=== PATIENT | female | born 1980 | race Caucasian/White ===

== ENCOUNTER 2018-02-11 09:50 | Emergency (ER) | payer OTHER ==
[2018-02-11] MEDS: LIDOCAINE WITH 8.4% SOD BICARB 3 ML DISP.SYRIN. INJ (10:21)
== END 2018-02-11 11:01 | disposition home or self-care (01) ==
LOC: ER 09:50
DX: L02.415 Cutaneous abscess of right lower limb (principal); J44.9 Chronic obstructive pulmonary disease, unspecified; G89.29 Other chronic pain; E11.9 Type 2 diabetes mellitus without complications; F17.200 Nicotine dependence, unspecified, uncomplicated; Z88.6 Allergy status to analgesic agent
CPT/HCPCS: 10060; 99283-25

== ENCOUNTER 2019-02-20 15:10 | Emergency (ER) | payer OTHER, SELFPAY ==
[~2019-02-20] VITALS: Ht 160 cm; Wt 63.5 kg
[~2019-02-20 15:10] MED LIST: AMOX875T PO; ASPI-630 PO; BUPR100T6 PO; CEPH-263 PO; CEPH500C PO; CIPR500T94 PO; CITA20TA9 PO; CITA40TA12 PO; CLON1TAB PO; CYCL10TA2 PO; ETHY1TAB2 PO; HYDR-2761 PO; IBUP-1060 PO; METF500T16 PO; NICO1PAT25 TP; OXYC30TA64 PO; OXYC5CAP PO; PRED20TA PO; PROM25SU32 PO; SULF1TAB24 PO; ZOLP10TA PO
[2019-02-20 16:20] LABS: BASO # 0.1 x10^3/uL (0.0-0.2); BASO % 1 % (0-3); EOS % 1 % (0-3); HEMATOCRIT 44.1 % (36.0-47.0); HEMOGLOBIN 15.2 g/dL (12.0-15.5); LYMPH % 33 % (24-48); MEAN CORPUSCULAR HEMOGLOBIN 33 pg (25-35); MEAN CORPUSCULAR HGB CONC 35 g/dL (31-37); MEAN CORPUSCULAR VOLUME 94 fL (79-100); MONO # 0.7 x10^3/uL (0.0-1.1); MONO % 8 % (0-9); NEUT # 5.2 x10^3uL (1.8-7.7); NEUT % 58 % (31-73); PLATELET COUNT 206 x10^3/uL (140-400); RED BLOOD COUNT 4.68 x10^6/uL (3.50-5.40); RED CELL DISTRIBUTION WIDTH 13.3 % (11.5-14.5); WHITE BLOOD COUNT 8.9 x10^3/uL (4.0-11.0)
[2019-02-20] MEDS ORDERED: diphenhydrAMINE 50 MG/ML VIAL IVP ONE (16:30)
[2019-02-20] MEDS ORDERED: METOCLOPRAMIDE HCL 10 MG/2 ML VIAL. IV ONE ×2 (16:30→18:30)
[2019-02-20 16:34] LABS: ALBUMIN 4.3 g/dL (3.4-5.0); ALBUMIN/GLOBULIN RATIO 1.2 (1.0-1.7); CALCIUM 10.3 mg/dL (8.5-10.1); CREATININE 0.8 mg/dL (0.6-1.0); GFR 79.9; TOTAL BILIRUBIN 0.7 mg/dL (0.2-1.0); TOTAL PROTEIN 7.9 g/dL (6.4-8.2)
[2019-02-20 16:37] LABS: POTASSIUM 2.9 mmol/L (3.5-5.1)
[2019-02-20] MEDS ORDERED: POTASSIUM CHLORIDE 20 MEQ/15 ML ORAL LIQUID. PO ONE (17:00)
[2019-02-20] MEDS ORDERED: IV NORMAL SALINE 1000ML BAG 1,000 ML IV ONE (17:00)
[2019-02-20] MEDS ORDERED: IOHEXOL 300 MG/ML 100ML VIAL. IV ONE (17:15)
[2019-02-20] MEDS ORDERED: CONTRAST GIVEN. MC PRN (17:15)
--- NOTE | 2019-02-20 17:42 | RAD ---
CT Abdomen and Pelvis with contrast CT Abdomen and Pelvis with contrast 02/20/2019 Clinical Indication: Abdominal pain, constipation, nausea and vomiting Comparison: None Technique: Multiple CT images of the abdomen and pelvis were obtained with contrast following intravenous administration of Isovue 370 *One or more of the following individualized dose reduction techniques were utilized for this examination: 1. Automated exposure control. 2. Adjustment of the mA and/or kV according to patient size. 3. Use of iterative reconstruction technique. Findings: Heart size is normal. The visualized lung bases are clear. Liver is normal in size. Interval visualization of hypodensity in the liver adjacent to the fissure for the ligamentum teres measuring 1.4 cm series 2/image 20. Gallbladder, spleen, adrenal glands and pancreas are unremarkable. There is a stable 5 mm nonobstructive calculus in the inferior pole of the right kidney. Abdominal aorta is normal in caliber. Nature portal veins are patent. No retroperitoneal or mesenteric lymphadenopathy. The small and large bowel loops are normal in caliber without obstruction. No abdominal free fluid. No pneumoperitoneum. The appendix is normal in appearance. Mildly distended unopacified urinary bladder, uterus and adnexa are unremarkable. Trace dependent pelvic free fluid, likely physiologic. No iliac or inguinal lymphadenopathy. Moderate disc degeneration at L5-S1. There are no destructive osseous lesions. IMPRESSION: 1. No CT evidence of acute abdominal or pelvic process. 2. Stable nonobstructive left renal calculus. 3. Interval visualization of a right hepatic hypodensity which is a common location for focal steatosis, though indeterminate. Nonemergent MRI abdomen with contrast is recommended for further evaluation. Electronically signed by: Hi Jane MD (02/20/2019 5:40 PM) [facility] [place]
[2019-02-20] MEDS ORDERED: PROM25TA10 PO (18:37)
[2019-02-20] MEDS ORDERED: POTA10TA12 PO (18:37)
--- NOTE | 2019-02-20 18:37 | PHYS DOC ---
Past Medical History Past Medical History: Anxiety, COPD, Depression, Diabetes-Type II, Kidney Stone, Other Additional Past Medical Histor: Chronic back pain,DDD,MULT ABSCESSES Past Surgical History: Tonsillectomy, Tubal ligation, Other Additional Past Surgical Histo: ACL repair right knee x2, Top teeth removed Additional Information: 1 PK/DAY Alcohol Use: Occasionally Drug Use: None Social History Narrative: PREVIOUS METH ABUSE Adult General Chief Complaint Chief Complaint: NAUSEA/VOMITING/DIARRHA HPI HPI Patient is a 38 year old F who is here for N/V and constipation. She states that she was just [facility] last night and during her incarceration she did go through opiate withdrawal. They treated her symptoms while she was there but since release she can't stop vomiting and reports no bowel movement for 4 d ays. Pt did go to another ER today but states they gave her PO Zofran and sent her home and she has tried taking that (24 mg so far) and is still vomiting. She has abdominal cramps throughout but no focal pain. Review of Systems Review of Systems Constitutional: Denies fever or chills. Reports generalized weakness. Respiratory: Denies cough or shortness of breath Cardiovascular: Denies chest pain GI: Reports abdominal pain, nausea, vomiting and diarrhea. : Denies dysuria or hematuria Musculoskeletal: Denies back pain or joint pain Integument: Denies rash or skin lesions Neurologic: Denies headache, focal weakness or sensory changes Endocrine: Denies polyuria or polydipsia All other systems were reviewed and found to be within normal limits, except as documented in this note. Current Medications Current Medications Current Medications Medications (Trade) Dose Ordered Sig/Rainer Start Time Stop Time Status Last Admin Dose Admin Diphenhydramine HCl (Benadryl) 12.5 mg 1X ONCE 02/20/19 16:30 02/20/19 16:31 DC 02/20/19 17:04 12.5 MG Info (CONTRAST GIVEN -- Rx MONITORING) 1 each PRN DAILY PRN 02/20/19 17:15 02/20/19 19:06 DC Iohexol (Omnipaque 300 Mg/ml) 75 ml 1X ONCE 02/20/19 17:15 02/20/19 17:16 DC 02/20/19 17:23 75 ML Metoclopramide HCl (Reglan Vial) 10 mg 1X ONCE 02/20/19 18:30 02/20/19 18:31 DC 02/20/19 18:16 10 MG Potassium Chloride (KCl Oral Soln) 40 meq 1X ONCE 02/20/19 17:00 02/20/19 17:01 DC 02/20/19 18:30 40 MEQ Sodium Chloride 1,000 ml @ 1,000 mls/hr 1X ONCE 02/20/19 17:00 02/20/19 17:59 DC 02/20/19 17:05 1,000 MLS/HR Allergies Allergies Allergies Coded Allergies Type Severity Reaction Last Updated Verified tramadol Adverse Reaction Intermediate Anxiety 10/09/15 Yes Physical Exam Physical Exam Constitutional: Well developed,no acute distress, non-toxic appearance. Dehydrated in appearance, uncomfortable. HENT: Normocephalic, atraumatic Neck: Normal range of motion, no tenderness, supple, no stridor. Cardiovascular:Heart rate regular rhythm, no murmur Lungs & Thorax: Bilateral breath sounds clear to auscultation Abdomen: Bowel sounds normal, soft, tenderness diffuse through all 4 quadrants. Skin: Warm, dry, no erythema, no rash. Back: No tenderness, no CVA tenderness. Extremities: No tenderness, no cyanosis, no clubbing, ROM intact, no edema. Neurologic: Alert and oriented X 3, normal motor function, normal sensory function, no focal deficits noted. Psychologic: Affect normal, judgement normal, mood normal. Current Patient Data Vital Signs Vital Signs Date Time Temp Pulse Resp B/P (MAP) Pulse Ox O2 Delivery O2 Flow Rate FiO2 02/20/19 18:50 70 20 152/90 (110) 98 Room Air 02/20/19 15:52 98.5 98.5 Lab Values Laboratory Tests Test 02/20/19 16:09 White Blood Count 8.9 x10^3/uL (4.0-11.0) Red Blood Count 4.68 x10^6/uL (3.50-5.40) Hemoglobin 15.2 g/dL (12.0-15.5) Hematocrit 44.1 % (36.0-47.0) Mean Corpuscular Volume 94 fL (79-100) Mean Corpuscular Hemoglobin 33 pg (25-35) Mean Corpuscular Hemoglobin Concent 35 g/dL (31-37) Red Cell Distribution Width 13.3 % (11.5-14.5) Platelet Count 206 x10^3/uL (140-400) Neutrophils (%) (Auto) 58 % (31-73) Lymphocytes (%) (Auto) 33 % (24-48) Monocytes (%) (Auto) 8 % (0-9) Eosinophils (%) (Auto) 1 % (0-3) Basophils (%) (Auto) 1 % (0-3) Neutrophils # (Auto) 5.2 x10^3uL (1.8-7.7) Lymphocytes # (Auto) 3.0 x10^3/uL (1.0-4.8) Monocytes # (Auto) 0.7 x10^3/uL (0.0-1.1) Eosinophils # (Auto) 0.0 x10^3/uL (0.0-0.7) Basophils # (Auto) 0.1 x10^3/uL (0.0-0.2) Sodium Level 144 mmol/L (136-145) Potassium Level 2.9 mmol/L (3.5-5.1) *L Chloride Level 102 mmol/L (98-107) Carbon Dioxide Level 23 mmol/L (21-32) Anion Gap 19 (6-14) H Blood Urea Nitrogen 13 mg/dL (7-20) Creatinine 0.8 mg/dL (0.6-1.0) Estimated GFR (Cockcroft-Gault) 79.9 BUN/Creatinine Ratio 16 (6-20) Glucose Level 113 mg/dL (70-99) H Calcium Level 10.3 mg/dL (8.5-10.1) H Total Bilirubin 0.7 mg/dL (0.2-1.0) Aspartate Amino Transferase (AST) 13 U/L (15-37) L Alanine Aminotransferase (ALT) 21 U/L (14-59) Alkaline Phosphatase 64 U/L (46-116) Total Protein 7.9 g/dL (6.4-8.2) Albumin 4.3 g/dL (3.4-5.0) Albumin/Globulin Ratio 1.2 (1.0-1.7) Lipase 49 U/L (73-393) L Laboratory Tests 02/20/19 16:09 Laboratory Tests 02/20/19 16:09 EKG EKG [] Radiology/Procedures Radiology/Procedures no signs of obstructive process Course & Med Decision Making Course & Med Decision Making Pertinent Labs and Imaging studies reviewed. (See chart for details) Pt treated for hypokalemia here in ER and encouraged potassium rich foods and fluids and electrolyte drinks. Pt is tolerated PO at time of discharge and will be discharged with Phenergan to see if that helps control symptoms better. Discussed that this could still be part of opiate withdrawal or could be virus. Pt to return if symptoms worsen at anytime. Dragon Disclaimer Dragon Disclaimer This electronic medical record was generated, in whole or in part, using a voice recognition dictation system. Departure Departure Impression: Primary Impression: Nausea & vomiting Additional Impression: Hypokalemia Disposition: HOME, SELF-CARE Condition: IMPROVED Referrals: KURT GOODE MD (PCP) Patient Instructions: Hypokalemia, Nausea and Vomiting, [id number] Additional Instructions: Follow a very bland diet. Examples are Bananas, Rice, Applesauce or [place]. Stay away from spice and dairy until feeling better. Push fluids, including electrolytes and return if symptoms worsen at anytime. Scripts Potassium Chloride (POTASSIUM CHLORIDE) 10 Meq Tablet.er 10 MEQ PO DAILY for 3 Days, #3 TAB Prov: MIMI AVILES 02/20/19 Promethazine Hcl (PROMETHAZINE HCL) 25 Mg Tablet 1 TAB PO PRN Q6HRS, #20 TAB Prov: MIMI AVILES 02/20/19 Problem Qualifiers MIMI AVILES February 20, 2019 18:37
[2019-02-20 18:50] VITALS: BP 152/90
== END 2019-02-20 18:59 | disposition home or self-care (01) ==
LOC: ER 15:10
DX: R11.2 Nausea with vomiting, unspecified (principal); E87.6 Hypokalemia; K59.00 Constipation, unspecified; F41.9 Anxiety disorder, unspecified; J44.9 Chronic obstructive pulmonary disease, unspecified; F32.9 Major depressive disorder, single episode, unspecified; E11.9 Type 2 diabetes mellitus without complications; G89.29 Other chronic pain; F17.200 Nicotine dependence, unspecified, uncomplicated; Z88.5 Allergy status to narcotic agent; Z90.89 Acquired absence of other organs; Z98.51 Tubal ligation status
CPT/HCPCS: 36415; 74177; 80053; 83690; 85025; 96361; 96374; 96375; 96376; 99285; J1200; J2765; J7030; Q9967

== ENCOUNTER 2019-09-06 19:46 | Emergency (ER) | payer SELFPAY ==
[~2019-09-06] VITALS: Ht 160 cm; Wt 65.8 kg
[~2019-09-06 19:46] MED LIST changes: +POTASSIUM CHLO10 ME1 PO; +PROM25TA10 PO
[2019-09-06 20:18] LABS: BILIRUBIN,URINE NEGATIVE (NEG); CLARITY,URINE CLEAR; COLOR,URINE YELLOW; NITRITE,URINE NEGATIVE (NEG); PROTEIN,URINE NEGATIVE (NEG-TRACE); UROBILINOGEN,URINE 0.2 mg/dL (0.2 mg/dL)
[2019-09-06 20:28] LABS: RBC,URINE >40 /HPF (0-2)
[2019-09-06 20:29] LABS: BACTERIA,URINE FEW /HPF (0-FEW); SQUAMOUS EPITHELIAL CELL,UR OCC /LPF
[2019-09-06 20:42] LABS: BASO # 0.1 x10^3/uL (0.0-0.2); BASO % 1 % (0-3); EOS # 0.3 x10^3/uL (0.0-0.7); EOS % 3 % (0-3); HEMATOCRIT 34.7 % (36.0-47.0); HEMOGLOBIN 11.8 g/dL (12.0-15.5); LYMPH # 3.1 x10^3/uL (1.0-4.8); LYMPH % 40 % (24-48); MEAN CORPUSCULAR HEMOGLOBIN 33 pg (25-35); MEAN CORPUSCULAR HGB CONC 34 g/dL (31-37); MEAN CORPUSCULAR VOLUME 96 fL (79-100); MONO # 0.6 x10^3/uL (0.0-1.1); MONO % 7 % (0-9); NEUT # 3.8 x10^3/uL (1.8-7.7); NEUT % 49 % (31-73); PLATELET COUNT 226 x10^3/uL (140-400); RED BLOOD COUNT 3.61 x10^6/uL (3.50-5.40); RED CELL DISTRIBUTION WIDTH 13.8 % (11.5-14.5); WHITE BLOOD COUNT 7.7 x10^3/uL (4.0-11.0)
[2019-09-06 20:52] LABS: PROTHROMBIN TIME PATIENT 12.3 SEC (11.7-14.0)
[2019-09-06 20:55] LABS: CALCIUM 8.9 mg/dL (8.5-10.1); CREATININE 0.5 mg/dL (0.6-1.0); GFR 136.6; POTASSIUM 3.4 mmol/L (3.5-5.1)
[2019-09-06 21:00] LABS: ALBUMIN 3.7 g/dL (3.4-5.0); ALBUMIN/GLOBULIN RATIO 1.1 (1.0-1.7); TOTAL BILIRUBIN 0.3 mg/dL (0.2-1.0); TOTAL PROTEIN 7.1 g/dL (6.4-8.2)
[2019-09-06 21:14] VITALS: BP 108/74
--- NOTE | 2019-09-06 21:39 | PHYS DOC ---
Past Medical History Past Medical History: Anxiety, COPD, Depression, Diabetes-Type II, Kidney Stone, Other Additional Past Medical Histor: Chronic back pain,DDD,MULT ABSCESSES (LYNDA CARLSON APRN) Past Surgical History: Tonsillectomy, Tubal ligation, Other Additional Past Surgical Histo: ACL repair right knee x2, Top teeth removed (LYNDA CARLSON APRN) Alcohol Use: Occasionally Drug Use: None (LYNDA CARLSON APRN) Attending Signature I have participated in the care of this patient and I have reviewed and agree with all pertinent clinical information above including history, exam, and recommendations. (TONNY BANKS MD) Adult General Chief Complaint Chief Complaint: VAGINAL BLEEDING HPI HPI Patient is a 39 year old Female who presents with has been on her menses for the last 3 weeks. She states she's been having low abdominal cramping. Patient states she's gone through 6-8 pads a day. Patient states times she has large clots. Patient states she did not have a period last month. She states she has bilateral low back pain. 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 Patient states she has not her insurance and does not know where to go. Patient currently rates her pain a 5 out of 10 and states she's been taking ibuprofen or Advil for her pain. Patient's refusing any pain medicines at this time. Patient denies nausea, vomiting, chest pain, shortness of air, dysuria, fever, recent illness, dysuria, dizziness, headache, visual changes, numbness or tingling. (LYNDA CARLSON APRN) Review of Systems Review of Systems GI: Lower and left upper side abdominal pain, Denies nausea, vomiting, bloody stools or diarrhea [] : Vaginal bleeding. Denies dysuria or hematuria [] Musculoskeletal: Bilateral lower back pain or joint pain [] All other systems were reviewed and found to be within normal limits, except as documented in this note. (LYNDA CARLSON APRN) Current Medications Current Medications Current Medications Medications (Trade) Dose Ordered Sig/Rainer Start Time Stop Time Status Last Admin Dose Admin Ibuprofen (Motrin) 600 mg 1X ONCE 09/06/19 23:30 09/06/19 23:31 DC 09/06/19 23:21 600 MG (TONNY BANKS MD) Allergies Allergies Allergies Coded Allergies Type Severity Reaction Last Updated Verified tramadol Adverse Reaction Intermediate Anxiety 10/09/15 Yes (TONNY BANKS MD) Physical Exam Physical Exam Constitutional: Well developed, well nourished, no acute distress, non-toxic appearance. [] HENT: Normocephalic, atraumatic, bilateral external ears normal, oropharynx moist, no oral exudates, nose normal. [] Eyes: PERRLA, EOMI, conjunctiva normal, no discharge. [] Neck: Normal range of motion, no tenderness, supple, no stridor. [] Cardiovascular:Heart rate regular rhythm, no murmur [] Lungs & Thorax: Bilateral breath sounds clear to auscultation [] Abdomen: Bowel sounds normal, soft, left upper and low tenderness, no masses, no pulsatile masses. [] Skin: Warm, dry, no erythema, no rash. [] Back: No tenderness, no CVA tenderness. [] Extremities: No tenderness, no cyanosis, no clubbing, ROM intact, no edema. [] Neurologic: Alert and oriented X 3, normal motor function, normal sensory funct ion, no focal deficits noted. [] Psychologic: Affect normal, judgement normal, mood normal. [] (LYNDA CARLSON APRN) Current Patient Data Vital Signs Vital Signs Date Time Temp Pulse Resp B/P (MAP) Pulse Ox O2 Delivery O2 Flow Rate FiO2 09/06/19 21:14 89 14 108/74 (85) 99 Room Air 09/06/19 20:18 98.5 98.5 (TONNY BANKS MD) Lab Values Laboratory Tests Test 09/06/19 19:58 09/06/19 20:35 Urine Color Yellow Urine Clarity Clear Urine pH 6.0 Urine Specific [place] 1.015 Urine Protein Negative mg/dL (NEG-TRACE) Urine Glucose (UA) Negative mg/dL (NEG) Urine Ketones (Stick) Negative mg/dL (NEG) Urine Blood Large (NEG) Urine Nitrite Negative (NEG) Urine Bilirubin Negative (NEG) Urine Urobilinogen Dipstick 0.2 mg/dL (0.2 mg/dL) Urine Leukocyte Esterase Negative (NEG) Urine RBC >40 /HPF (0-2) Urine WBC 1-4 /HPF (0-4) Urine Squamous Epithelial Cells Occ /LPF Urine Bacteria Few /HPF (0-FEW) Urine Mucus Slight /LPF White Blood Count 7.7 x10^3/uL (4.0-11.0) Red Blood Count 3.61 x10^6/uL (3.50-5.40) Hemoglobin 11.8 g/dL (12.0-15.5) L Hematocrit 34.7 % (36.0-47.0) L Mean Corpuscular Volume 96 fL (79-100) Mean Corpuscular Hemoglobin 33 pg (25-35) Mean Corpuscular Hemoglobin Concent 34 g/dL (31-37) Red Cell Distribution Width 13.8 % (11.5-14.5) Platelet Count 226 x10^3/uL (140-400) Neutrophils (%) (Auto) 49 % (31-73) Lymphocytes (%) (Auto) 40 % (24-48) Monocytes (%) (Auto) 7 % (0-9) Eosinophils (%) (Auto) 3 % (0-3) Basophils (%) (Auto) 1 % (0-3) Neutrophils # (Auto) 3.8 x10^3/uL (1.8-7.7) Lymphocytes # (Auto) 3.1 x10^3/uL (1.0-4.8) Monocytes # (Auto) 0.6 x10^3/uL (0.0-1.1) Eosinophils # (Auto) 0.3 x10^3/uL (0.0-0.7) Basophils # (Auto) 0.1 x10^3/uL (0.0-0.2) Prothrombin Time 12.3 SEC (11.7-14.0) Prothrombin Time INR 0.9 (0.8-1.1) Maternal Serum HCG Beta Subunit < 1 mIU/mL (0-5) Sodium Level 140 mmol/L (136-145) Potassium Level 3.4 mmol/L (3.5-5.1) L Chloride Level 104 mmol/L (98-107) Carbon Dioxide Level 29 mmol/L (21-32) Anion Gap 7 (6-14) Blood Urea Nitrogen 5 mg/dL (7-20) L Creatinine 0.5 mg/dL (0.6-1.0) L Estimated GFR (Cockcroft-Gault) 136.6 BUN/Creatinine Ratio 10 (6-20) Glucose Level 97 mg/dL (70-99) Calcium Level 8.9 mg/dL (8.5-10.1) Total Bilirubin 0.3 mg/dL (0.2-1.0) Aspartate Amino Transferase (AST) 15 U/L (15-37) Alanine Aminotransferase (ALT) 18 U/L (14-59) Alkaline Phosphatase 54 U/L (46-116) Total Protein 7.1 g/dL (6.4-8.2) Albumin 3.7 g/dL (3.4-5.0) Albumin/Globulin Ratio 1.1 (1.0-1.7) Lipase 46 U/L (73-393) L Laboratory Tests 09/06/19 20:35 Laboratory Tests 09/06/19 20:35 (TONNY BANKS MD) EKG EKG [] (LYNDA CARLSON APRN) Radiology/Procedures Radiology/Procedures [] (LYNDA CARLSON APRN) Impressions: [facility] [address] [place] [address] IMAGING REPORT Signed PATIENT: MARIAN HOSKINS ACCOUNT: [id number] : 1980 LOCATION: ER AGE: 39 SEX: F EXAM STATUS: REG ER ORD. PHYSICIAN: LYNDA CARLSON APRN REASON: vaginal bleeding x 3 weeks PROCEDURE: PELVIS W/TV PELVIS W/TV History: Vaginal bleeding 3 weeks. Comparison: None. Technique: Grayscale and color Doppler imaging of the pelvis was performed using transabdominal and transvaginal technique. Findings: The uterus measures 9.4 x 5.8 x 4.8 cm in length. Thickened heterogeneous endometrium 0.7 cm. Right ovary measures 3.6 x 2.5 x 1.7 cm. Dominant right ovarian follicle measures 2.4 cm. Left ovary measures 5.1 x 3.7 x 2.6 cm. Left ovarian cystic lesion with thickened wall and septation measures 2.9 x 2.7 x 2.4 cm. IMPRESSION: 1. Thickened heterogeneous endometrium, may represent endometrial hyperplasia. Recommend further clinical evaluation and endometrial biopsy if indicated to rule out endometrial carcinoma. 2. Left ovarian cystic lesion thickened septation. Recommend attention on follow-up. Electronically signed by: Nick Taveras DO (09/06/2019 9:35 PM) [facility] DICTATED and SIGNED BY: NICK TAVERAS DO DATE: 09/06/19 2138 [facility] [address] [place] [address] IMAGING REPORT Signed PATIENT: MARIAN HOSKINS ACCOUNT: [id number] : 1980 LOCATION: ER AGE: 39 SEX: F EXAM STATUS: REG ER ORD. PHYSICIAN: LYNDA CARLSON APRN REASON: HX KID STONE, LEFT SIDE PAIN AND BACK PAIN PROCEDURE: CT ABDOMEN PELVIS WO CONTRAST CT ABDOMEN PELVIS WO CONTRAST History: History of kidney stone. Left-sided pain. Technique: Noncontrast examination of the abdomen and pelvis. Coronal and sagittal reconstructions were performed. Exposure: One or more of the following individualized dose reduction techniques were utilized for this examination: 1. Automated exposure control 2. Adjustment of the mA and/or kV according to patient size 3. Use of iterative reconstruction technique. Comparison: February 20, 2019 Findings: Lower chest: No consolidation or pleural effusion. Abdomen and pelvis: The liver, spleen, adrenal glands, pancreas and gallbladder are unremarkable. Nonobstructing left renal calculi. No hydronephrosis. No ureteral calculi. Normal appendix. No evidence of bowel obstruction. Diffuse apparent colonic wall thickening. No pathologic lymphadenopathy. No ascites. Pelvic contents are unremarkable. Bones: No pathologic osseous lesions. Impression: 1. No obstructing urolithiasis. 2. Diffuse apparent colonic wall thickening, likely due to nondistention. Correlate for colitis. 3. Nonobstructing left renal calculi. Electronically signed by: Nick Taveras DO (09/06/2019 11:00 PM) [facility] DICTATED and SIGNED BY: NICK TAVERAS DO DATE: 09/06/19 2300 (LYNDA CARLSON APRN) Course & Med Decision Making Course & Med Decision Making Alert and oriented. Speaks in full clear sentences. Ambulatory with steady gait. Skin pink warm and dry. Abdomen is soft and non-tender. Lungs are clear to auscultation all lobes. Vital signs are within normal limits. No extremity swelling. Blood work is unremarkable. Patient states at times she gets left side sharp pains that at times will make her double over and she does have a history of kidney stones. PERRLA. No CVA tenderness. US shows IMPRESSION: 1. Thickened heterogeneous endometrium, may represent endometrial hyperplasia. Recommend further clinical evaluation and endometrial biopsy if indicated to rule out endometrial carcinoma. 2. Left ovarian cystic lesion thickened septation. Recommend attention on follow-up. CT ABD PELV Impression: 1. No obstructing urolithiasis. 2. Diffuse apparent colonic wall thickening, likely due to nondistention. Correlate for colitis. 3. Nonobstructing left renal calculi. Patient follow-up with gynecology. I will refer her to gynecology for follow-up as soon as possible. [] (LYNDA CARLSON APRN) Dragon Disclaimer Dragon Disclaimer This electronic medical record was generated, in whole or in part, using a voice recognition dictation system. (LYNDA CARLSON APRN) Departure Departure Impression: Primary Impression: Dysmenorrhea Disposition: HOME, SELF-CARE Condition: STABLE Referrals: NO PCP (PCP) NAYLA GRANGER Jr, MD Patient Instructions: Dysmenorrhea, [id number] Additional Instructions: Follow-up with gynecology as soon as possible. Call them in the morning. Scripts Hydrocodone/Apap 5-325 (NORCO 5-325 TABLET) 1 Each Tablet 1 TAB PO PRN Q6HRS PRN for PAIN, #8 TAB 0 Refills Prov: LYNDA CARLSON APRN 09/06/19 LYNDA CARLSON APRN Sep 06, 2019 21:39 TONNY BANKS MD Sep 07, 2019 04:58
--- NOTE | 2019-09-06 23:03 | RAD ---
CT ABDOMEN PELVIS WO CONTRAST History: History of kidney stone. Left-sided pain. Technique: Noncontrast examination of the abdomen and pelvis. Coronal and sagittal reconstructions were performed. Exposure: One or more of the following individualized dose reduction techniques were utilized for this examination: 1. Automated exposure control 2. Adjustment of the mA and/or kV according to patient size 3. Use of iterative reconstruction technique. Comparison: February 20, 2019 Findings: Lower chest: No consolidation or pleural effusion. Abdomen and pelvis: The liver, spleen, adrenal glands, pancreas and gallbladder are unremarkable. Nonobstructing left renal calculi. No hydronephrosis. No ureteral calculi. Normal appendix. No evidence of bowel obstruction. Diffuse apparent colonic wall thickening. No pathologic lymphadenopathy. No ascites. Pelvic contents are unremarkable. Bones: No pathologic osseous lesions. Impression: 1. No obstructing urolithiasis. 2. Diffuse apparent colonic wall thickening, likely due to nondistention. Correlate for colitis. 3. Nonobstructing left renal calculi. Electronically signed by: Nick Taveras DO (09/06/2019 11:00 PM) [facility]
[2019-09-06] MEDS ORDERED: HYDR-3164 PO (23:30)
[2019-09-06] MEDS ORDERED: IBUPROFEN 200 MG TABLET. PO ONE (23:30)
== END 2019-09-06 23:34 | disposition home or self-care (01) ==
LOC: ER 19:46
DX: N94.6 Dysmenorrhea, unspecified (principal); M54.5 Low back pain; R10.12 Left upper quadrant pain; R10.32 Left lower quadrant pain; J44.9 Chronic obstructive pulmonary disease, unspecified; E11.9 Type 2 diabetes mellitus without complications; G89.29 Other chronic pain; F32.9 Major depressive disorder, single episode, unspecified; F41.9 Anxiety disorder, unspecified; Z98.51 Tubal ligation status; Z88.6 Allergy status to analgesic agent
CPT/HCPCS: 36415; 74176; 76830; 76856; 80053; 81001; 83690; 84702; 85025; 85610; 99285-25

== ENCOUNTER 2019-09-23 09:40 | Emergency (ER) | payer SELFPAY ==
[~2019-09-23] VITALS: Ht 160 cm; Wt 68.0 kg
[~2019-09-23 09:40] MED LIST changes: +HYDR-3164 PO
[2019-09-23 09:45] VITALS: BP 144/80
[2019-09-23 10:17] LABS: BILIRUBIN,URINE NEGATIVE (NEG); CLARITY,URINE CLEAR; COLOR,URINE YELLOW; NITRITE,URINE NEGATIVE (NEG); PROTEIN,URINE NEGATIVE (NEG-TRACE); UROBILINOGEN,URINE 0.2 mg/dL (0.2 mg/dL)
[2019-09-23 10:24] LABS: BARBITURATES NEG (NEG); BENZODIAZEPINES NEG (NEG); CANNABINOIDS NEG (NEG); COCAINE NEG (NEG); METHADONE NEG (NEG); OPIATES POS (NEG); PHENCYCLIDINE NEG (NEG)
--- NOTE | 2019-09-23 10:24 | PHYS DOC ---
Past Medical History Past Medical History: Anxiety, COPD, Depression, Diabetes-Type II, Kidney Stone, Other Additional Past Medical Histor: Chronic back pain,DDD,MULT ABSCESSES Past Surgical History: Tonsillectomy, Tubal ligation, Other Additional Past Surgical Histo: ACL repair right knee x2, Top teeth removed Alcohol Use: Occasionally Drug Use: None Adult General Chief Complaint Chief Complaint: VAGINAL BLEEDING HPI HPI Patient is a 39 year old female with history of anxiety, depression, diabetes type 2, who presents to the ED today complaining of vaginal bleeding that began 38 days ago. Patient states she has been seen at [facility] emergency room 3 weeks ago, she also reports she was seen at [facility] ED a couple days later for the same complaint. She states she was told to follow up with an [facility] PROFESSIONAL but she is not able to follow-up because she does not have any medical insurance/finances. She followed up with the [facility] and they put on progesterone. She states the bleeding had slowed down but returned a couple days ago with cramping and blood clots. She reports uses 4-6 feminine pads/tampons in 24 hours. Patient reports she had an ultrasound done in our ED which showed she had thickened endometrium. She reports the last time she called an OBGYN they wanted $ 250 up front. Review of Systems Review of Systems Constitutional: Denies fever or chills [] Eyes: Denies change in visual acuity, redness, or eye pain [] HENT: Denies nasal congestion or sore throat [] Respiratory: Denies cough or shortness of breath [] Cardiovascular: No additional information not addressed in HPI [] GI: Reports vaginal bleeding. Denies nausea, vomiting, bloody stools or diarrhea [] : Denies dysuria or hematuria [] Musculoskeletal: Denies back pain or joint pain [] Integument: Denies rash or skin lesions [] Neurologic: Denies headache, focal weakness or sensory changes [] All other systems were reviewed and found to be within normal limits, except as documented in this note. Allergies Allergies Allergies Coded Allergies Type Severity Reaction Last Updated Verified tramadol Adverse Reaction Intermediate Anxiety 10/09/15 Yes Physical Exam Physical Exam Constitutional: Well developed, well nourished, no acute distress, non-toxic appearance. [] HENT: Normocephalic, atraumatic, bilateral external ears normal, oropharynx moist, no oral exudates, nose normal. [] Eyes: PERRLA, EOMI, conjunctiva normal, no discharge. [] Neck: Normal range of motion, no tenderness, supple, no stridor. [] Cardiovascular:Heart rate regular rhythm, no murmur [] Lungs & Thorax: Bilateral breath sounds clear to auscultation [] Abdomen: Bowel sounds normal, soft, no tenderness, no masses, no pulsatile masses. [] Pelvic exam-external pelvic appears normal, cervix is visualized, small amount of bright red blood in the vaginal vault, no CMT, no adnexal tenderness. Skin: Warm, dry, no erythema, no rash. [] Back: No tenderness, no CVA tenderness. [] Extremities: No tenderness, no cyanosis, no clubbing, ROM intact, no edema. [] Neurologic: Alert and oriented X 3, normal motor function, normal sensory function, no focal deficits noted. [] Psychologic: Patient is tearful, depressed mood Current Patient Data Vital Signs Vital Signs Date Time Temp Pulse Resp B/P (MAP) Pulse Ox O2 Delivery O2 Flow Rate FiO2 09/23/19 09:45 98.0 66 20 144/80 (101) 98 Room Air 98.0 Lab Values Laboratory Tests Test 09/23/19 09:30 09/23/19 10:00 09/23/19 10:17 Urine Collection Type Void Urine Color Yellow Urine Clarity Clear Urine pH 6.0 Urine Specific [place] 1.025 Urine Protein Negative mg/dL (NEG-TRACE) Urine Glucose (UA) Negative mg/dL (NEG) Urine Ketones (Stick) Negative mg/dL (NEG) Urine Blood Large (NEG) Urine Nitrite Negative (NEG) Urine Bilirubin Negative (NEG) Urine Urobilinogen Dipstick 0.2 mg/dL (0.2 mg/dL) Urine Leukocyte Esterase Negative (NEG) Urine RBC 11-20 /HPF (0-2) Urine WBC Occ /HPF (0-4) Urine Squamous Epithelial Cells Few /LPF Urine Bacteria Few /HPF (0-FEW) Urine Mucus Mod /LPF Urine Opiates Screen Pos (NEG) Urine Methadone Screen Neg (NEG) Urine Barbiturates Neg (NEG) Urine Phencyclidine Screen Neg (NEG) Urine Amphetamine/Methamphetamine Neg (NEG) Urine Benzodiazepines Screen Neg (NEG) Urine Cocaine Screen Neg (NEG) Urine Cannabinoids Screen Neg (NEG) Urine Ethyl Alcohol Neg (NEG) POC Urine HCG, Qualitative Hcg negative (Negative) White Blood Count 7.3 x10^3/uL (4.0-11.0) Red Blood Count 3.74 x10^6/uL (3.50-5.40) Hemoglobin 12.3 g/dL (12.0-15.5) Hematocrit 36.6 % (36.0-47.0) Mean Corpuscular Volume 98 fL (79-100) Mean Corpuscular Hemoglobin 33 pg (25-35) Mean Corpuscular Hemoglobin Concent 34 g/dL (31-37) Red Cell Distribution Width 13.9 % (11.5-14.5) Platelet Count 213 x10^3/uL (140-400) Neutrophils (%) (Auto) 69 % (31-73) Lymphocytes (%) (Auto) 23 % (24-48) L Monocytes (%) (Auto) 6 % (0-9) Eosinophils (%) (Auto) 2 % (0-3) Basophils (%) (Auto) 1 % (0-3) Neutrophils # (Auto) 5.0 x10^3/uL (1.8-7.7) Lymphocytes # (Auto) 1.7 x10^3/uL (1.0-4.8) Monocytes # (Auto) 0.4 x10^3/uL (0.0-1.1) Eosinophils # (Auto) 0.1 x10^3/uL (0.0-0.7) Basophils # (Auto) 0.1 x10^3/uL (0.0-0.2) Sodium Level 137 mmol/L (136-145) Potassium Level 3.4 mmol/L (3.5-5.1) L Chloride Level 103 mmol/L (98-107) Carbon Dioxide Level 21 mmol/L (21-32) Anion Gap 13 (6-14) Blood Urea Nitrogen 10 mg/dL (7-20) Creatinine 0.6 mg/dL (0.6-1.0) Estimated GFR (Cockcroft-Gault) 110.7 BUN/Creatinine Ratio 17 (6-20) Glucose Level 110 mg/dL (70-99) H Calcium Level 8.6 mg/dL (8.5-10.1) Total Bilirubin 0.7 mg/dL (0.2-1.0) Aspartate Amino Transferase (AST) 10 U/L (15-37) L Alanine Aminotransferase (ALT) 11 U/L (14-59) L Alkaline Phosphatase 58 U/L (46-116) Total Protein 7.3 g/dL (6.4-8.2) Albumin 3.8 g/dL (3.4-5.0) Albumin/Globulin Ratio 1.1 (1.0-1.7) Ethyl Alcohol Level < 10 mg/dL (0-10) Laboratory Tests 09/23/19 10:17 Laboratory Tests 09/23/19 10:17 Microbiology 09/23/19 Wet Prep - Final, Complete EKG EKG [] Radiology/Procedures Radiology/Procedures [] Course & Med Decision Making Course & Med Decision Making Pertinent Labs and Imaging studies reviewed. (See chart for details) This is a 39-year-old female patient presenting to the ED today complaining of vaginal bleeding that began 38 days ago. See history of present illness. She was seen in the ED around September 13, 2019 for the same complaint, was also seen at [facility]. Her ultrasound done in the ED shows she had endometrial thickening and recommendations were for biopsy to rule out carcinoma. Patient herself reports history of endometrial cancer in the family. Patient unable to follow-up due to finances. Negative urine hCG, urine negative for infection, wet prep is negative, CBC with a normal hemoglobin and hematocrit, CMP with no acute findings. Considering his results from patient's ultrasound done 09/06/2019 patient was encouraged to follow up with an [facility] PROFESSIONAL or the [facility] as soon as possible. Results were discussed with patient she stated she does not need her paperwork because it has not benefit to her because she can not afford to see an OBGYN. She left the ED. Dragon Disclaimer Dragon Disclaimer This electronic medical record was generated, in whole or in part, using a voice recognition dictation system. Departure Departure Impression: Primary Impression: Dysfunctional uterine bleeding Disposition: 01 HOME, SELF-CARE Condition: STABLE Referrals: NO PCP (PCP) NAYLA GRANGER Jr, MD follow up in the course of next week Patient Instructions: Uterine Bleeding, Dysfunctional, [id number] Additional Instructions: You were evaluated in the emergency room for vaginal bleeding as discussed please follow up with an OBGYN as soon as possible. You can also follow up with [facility] and see if they have any resources to enable you see an OBGYN. SARITA DAMON APRN Sep 23, 2019 10:24
[2019-09-23 10:25] LABS: AMPHETAMINE/METHAMPHETAMINE NEG (NEG)
[2019-09-23 10:28] LABS: BASO # 0.1 x10^3/uL (0.0-0.2); BASO % 1 % (0-3); EOS # 0.1 x10^3/uL (0.0-0.7); EOS % 2 % (0-3); HEMATOCRIT 36.6 % (36.0-47.0); HEMOGLOBIN 12.3 g/dL (12.0-15.5); LYMPH # 1.7 x10^3/uL (1.0-4.8); LYMPH % 23 % (24-48); MEAN CORPUSCULAR HEMOGLOBIN 33 pg (25-35); MEAN CORPUSCULAR HGB CONC 34 g/dL (31-37); MEAN CORPUSCULAR VOLUME 98 fL (79-100); MONO # 0.4 x10^3/uL (0.0-1.1); MONO % 6 % (0-9); NEUT % 69 % (31-73); PLATELET COUNT 213 x10^3/uL (140-400); RED BLOOD COUNT 3.74 x10^6/uL (3.50-5.40); RED CELL DISTRIBUTION WIDTH 13.9 % (11.5-14.5); WHITE BLOOD COUNT 7.3 x10^3/uL (4.0-11.0)
[2019-09-23 10:33] LABS: CALCIUM 8.6 mg/dL (8.5-10.1); CREATININE 0.6 mg/dL (0.6-1.0); GFR 110.7; POTASSIUM 3.4 mmol/L (3.5-5.1)
[2019-09-23 10:39] LABS: ALBUMIN 3.8 g/dL (3.4-5.0); ALBUMIN/GLOBULIN RATIO 1.1 (1.0-1.7); TOTAL BILIRUBIN 0.7 mg/dL (0.2-1.0); TOTAL PROTEIN 7.3 g/dL (6.4-8.2)
[2019-09-23 11:07] LABS: BACTERIA,URINE FEW /HPF (0-FEW); SQUAMOUS EPITHELIAL CELL,UR FEW /LPF; WBC,URINE OCC /HPF (0-4)
== END 2019-09-23 11:16 | disposition home or self-care (01) ==
LOC: ER 09:40
DX: N93.8 Other specified abnormal uterine and vaginal bleeding (principal); F41.9 Anxiety disorder, unspecified; F32.9 Major depressive disorder, single episode, unspecified; J44.9 Chronic obstructive pulmonary disease, unspecified; E11.9 Type 2 diabetes mellitus without complications; G89.29 Other chronic pain; Z87.442 Personal history of urinary calculi; Z90.89 Acquired absence of other organs; Z98.51 Tubal ligation status; Z98.890 Other specified postprocedural states; Z88.6 Allergy status to analgesic agent
CPT/HCPCS: 36415; 80053; 80307; 81001; 81025; 85025; 99284; G0480; Q0111

== ENCOUNTER 2020-05-30 17:38 | Emergency (ER) | payer SELFPAY ==
[~2020-05-30] VITALS: Ht 160 cm; Wt 72.0 kg
[2020-05-30] MEDS ORDERED: fentaNYL PF VIAL 100 MCG/2 ML VIAL IVP ONE (19:30)
[2020-05-30] MEDS ORDERED: ONDANSETRON PF 4 MG/2 ML VIAL. IVP ONE (19:30)
[2020-05-30] MEDS ORDERED: IV NORMAL SALINE 1000ML BAG 1,000 ML IV ONE (19:30)
--- NOTE | 2020-05-30 19:35 | PHYS DOC ---
Past Medical History Past Medical History: Anxiety, COPD, Depression, Diabetes-Type II, Kidney Stone, Other Additional Past Medical Histor: Chronic back pain,DDD,MULT ABSCESSES (SARITA DAMON APRN) Past Surgical History: Tonsillectomy, Tubal ligation, Other Additional Past Surgical Histo: ACL repair right knee x2, Top teeth removed (SARITA DAMON APRN) Smoking Status: Current Every Day Smoker Alcohol Use: Occasionally Drug Use: None (SARITA DAMON APRN) General Adult EDM: Chief Complaint: ABDOMINAL PAIN HPI: HPI: Patient is a 40 year old female with history of kidney stones who presents to the ED today complaining of 10 out of 10 left lower quadrant abdominal pain that began 1 week ago. Patient states the pain is worse when she is moving around. Denies anything specifically relieving the pain. Denies any nausea vomiting. Denies any chance she is , she states she has had to take medication. Denies any hematuria, urgency, frequency. Denies any dysuria. (SARITA DAMON APRN) Review of Systems: Review of Systems: Constitutional: Denies fever or chills. [] Eyes: Denies change in visual acuity. [] HENT: Denies nasal congestion or sore throat. [] Respiratory: Denies cough or shortness of breath. [] Cardiovascular: Denies chest pain or edema. [] GI: Reports left lower quadrant abdominal pain, denies nausea, vomiting, bloody stools or diarrhea. [] : Denies dysuria. [] Musculoskeletal: Denies back pain or joint pain. [] Integument: Denies rash. [] Neurologic: Denies headache, focal weakness or sensory changes. [] Psychiatric: Denies depression or anxiety. [] (SARITA DAMON APRN) Heart Score: Risk Factors: Risk Factors: DM, Current or recent (<one month) smoker, HTN, HLP, family history of CAD, obesity. Risk Scores: Score 0 - 3: 2.5% MACE over next 6 weeks - Discharge Home Score 4 - 6: 20.3% MACE over next 6 weeks - Admit for Clinical Observation Score 7 - 10: 72.7% MACE over next 6 weeks - Early Invasive Strategies (SARITA DAMON APRN) Current Medications: Current Medications Medications (Trade) Dose Ordered Sig/Rainer Start Time Stop Time Status Last Admin Dose Admin Fentanyl Citrate (Fentanyl 2ml Vial) 50 mcg 1X ONCE 05/30/20 19:30 05/30/20 19:31 UNV Ondansetron HCl (Zofran) 4 mg 1X ONCE 05/30/20 19:30 05/30/20 19:31 UNV Sodium Chloride 1,000 ml @ 1,000 mls/hr 1X ONCE 05/30/20 19:30 05/30/20 20:29 UNV (SARITA DAMON APRN) Allergies: Allergies: Allergies Coded Allergies Type Severity Reaction Last Updated Verified tramadol Adverse Reaction Intermediate Anxiety 10/09/15 Yes (SARITA DAMON APRN) Physical Exam: PE: Constitutional: Well developed, well nourished, no acute distress, non-toxic appearance. [] HENT: Normocephalic, atraumatic, bilateral external ears normal, oropharynx moist, no oral exudates, nose normal. [] Eyes: PERRLA, EOMI, conjunctiva normal, no discharge. [] Neck: Normal range of motion, no tenderness, supple, no stridor. [] Cardiovascular:Heart rate regular rhythm, no murmur [] Lungs & Thorax: Bilateral breath sounds clear to auscultation [] Abdomen: Bowel sounds normal, soft, slight tenderness on palpation of the left lower quadrant, no right upper quadrant or right lower quadrant tenderness, negative psoas sign, negative obturator sign, negative Espinoza sign, no guarding, no rebound pain or tenderness, no masses, no pulsatile masses. [] Skin: Warm, dry, no erythema, no rash. [] Back: No tenderness, no CVA tenderness. [] Extremities: No tenderness, no cyanosis, no clubbing, ROM intact, no edema. [] Neurologic: Alert and oriented X 3, normal motor function, normal sensory function, no focal deficits noted. [] Psychologic: Affect normal, judgement normal, mood normal. [] (SARITA DAMON APRN) Current Patient Data: Labs: Laboratory Tests Test 05/30/20 19:25 POC Urine HCG, Qualitative Hcg negative (Negative) Vital Signs: Vital Signs Date Time Temp Pulse Resp B/P (MAP) Pulse Ox O2 Delivery O2 Flow Rate FiO2 05/30/20 19:10 98.1 84 18 126/88 (101) 98 Room Air 98.1 (SARITA DAMON APRN) EKG: EKG: [] (SARITA DAMON APRN) Radiology/Procedures: Radiology/Procedures: []PROCEDURE: CT ABDOMEN PELVIS WO CONTRAST CT Abdomen and Pelvis without contrast History: Left lower quadrant pain, history of kidney stones Technique: Noncontrast CT imaging was performed of the abdomen and pelvis. Multiplanar images are reviewed. Exposure: One or more of the following individualized dose reduction techniques were utilized for this examination: 1. Automated exposure control 2. Adjustment of the mA and/or kV according to patient size 3. Use of iterative reconstruction technique. Comparison: September 06, 2019 Findings: There is no hydronephrosis. There is a 1 to 2 mm inferior mid left calculus and also approximate 7 mm inferior left renal calculus. There is no right renal calculus. No convincing ureteral calculus is identified. There are some phleboliths in the pelvis as seen previously There is again small 3 mm nodule left lower lobe near the lung base image 12 series 2. Accurate evaluation of abdominal visceral organs is limited without intravenous contrast. There is no obvious abnormality of the spleen, liver, or pancreas. Gallbladder is present without obvious intraluminal abnormality by CT. There is no adrenal nodularity. Accurate evaluation of bowel is limited without oral contrast. There is retained stool greater of the right and transverse colon. Normal caliber appendix is visualized without adjacent inflammatory change. There is minimal dependent free fluid in the pelvis. There are again some inguinal nodes bilaterally although not considered significantly enlarged based on short axis dimensions, largest on the left about 9 mm. There is advanced L5-S1 degenerative disc disease, also spondylosis at this level. There is lesser degree of degenerative disc disease and spondylosis L3-4 and L4-5. There is facet degenerative change greater inferiorly of the lumbar spine. There is mild bilateral L5-S1 neural foramina compromise. Impression: 1. There are left renal calculi, no hydronephrosis or convincing ureteral calculus. There are some phleboliths in the pelvis. 2. There is very minimal nonspecific dependent free fluid in the pelvis. Electronically signed by: Rudolph Francis MD (05/30/2020 7:54 PM) [facility] DICTATED and SIGNED BY: RUDOLPH FRANCIS MD DATE: 05/30/201953 (SARITA DAMON APRN) Course & Med Decision Making: Course & Med Decision Making Pertinent Labs and Imaging studies reviewed. (See chart for details) This is a 40-year-old female patient presenting to the ED today complaining of left lower quadrant abdominal pain for 1 week. Urine analysis negative for leukocytes, negative for nitrates, noted for bacteria. CBC with a normal WBC, hemoglobin and hematocrit are normal. CMP with no acute findings. CT of the abdomen and pelvic was noted for left renal calculi, no hydronephrosis or convincing ureteral calculus, very minimal nonspecific dependent free fluid in the pelvis. Results were communicated to patient. She asked what she can take at home. Recommended [id number] medications. Also recommended following up with a PCP and urologist of her choice. She states she does not have money to buy any medications or see any provider. Provided clinic list. Discharge to home. (SRAITA DAMON APRN) Dragon Disclaimer: Dragon Disclaimer: This electronic medical record was generated, in whole or in part, using a voice recognition dictation system. (SARITA DAMON APRN) Departure Departure Impression: Primary Impression: Left lower quadrant pain Additional Impression: Kidney stones Disposition: , SELF-CARE Condition: STABLE Referrals: NO PCP (PCP) Follow-up with your own primary care doctor Patient Instructions: Abdominal Pain (Nonspecific) Additional Instructions: You were seen for abdominal pain, your lab work was negative for any acute findings. Your CAT scan was noted for kidney stone in the kidney. This t ypically not bad and less to start moving into the ureter. You can take [id number] pain relievers as needed. You can follow-up with your own primary care doctor or any urologist of your choice. Justicifation of Admission Dx: Justifications for Admission: Justification of Admission Dx: N/A (SARITA DAMON APRN) Attending Signature Attending Signature I was personally available for consult in the emergency department. I have reviewed the chart and agree with the documentation as recorded by the ELLEN including the assessment, treatment plan and disposition. (PEGGY STONE DO) SARITA DAMON APRN May 30, 2020 19:35 PEGGY STONE DO May 31, 2020 06:38
[2020-05-30 19:56] LABS: BILIRUBIN,URINE NEGATIVE (NEG); CLARITY,URINE CLEAR; COLOR,URINE YELLOW; NITRITE,URINE NEGATIVE (NEG); PH,URINE 6.5 (<5.0-8.0); PROTEIN,URINE NEGATIVE (NEG-TRACE); UROBILINOGEN,URINE 0.2 mg/dL (0.2 mg/dL)
--- NOTE | 2020-05-30 19:57 | RAD ---
CT Abdomen and Pelvis without contrast History: Left lower quadrant pain, history of kidney stones Technique: Noncontrast CT imaging was performed of the abdomen and pelvis. Multiplanar images are reviewed. Exposure: One or more of the following individualized dose reduction techniques were utilized for this examination: 1. Automated exposure control 2. Adjustment of the mA and/or kV according to patient size 3. Use of iterative reconstruction technique. Comparison: September 06, 2019 Findings: There is no hydronephrosis. There is a 1 to 2 mm inferior mid left calculus and also approximate 7 mm inferior left renal calculus. There is no right renal calculus. No convincing ureteral calculus is identified. There are some phleboliths in the pelvis as seen previously There is again small 3 mm nodule left lower lobe near the lung base image 12 series 2. Accurate evaluation of abdominal visceral organs is limited without intravenous contrast. There is no obvious abnormality of the spleen, liver, or pancreas. Gallbladder is present without obvious intraluminal abnormality by CT. There is no adrenal nodularity. Accurate evaluation of bowel is limited without oral contrast. There is retained stool greater of the right and transverse colon. Normal caliber appendix is visualized without adjacent inflammatory change. There is minimal dependent free fluid in the pelvis. There are again some inguinal nodes bilaterally although not considered significantly enlarged based on short axis dimensions, largest on the left about 9 mm. There is advanced L5-S1 degenerative disc disease, also spondylosis at this level. There is lesser degree of degenerative disc disease and spondylosis L3-4 and L4-5. There is facet degenerative change greater inferiorly of the lumbar spine. There is mild bilateral L5-S1 neural foramina compromise. Impression: 1. There are left renal calculi, no hydronephrosis or convincing ureteral calculus. There are some phleboliths in the pelvis. 2. There is very minimal nonspecific dependent free fluid in the pelvis. Electronically signed by: Martir Stafford MD (05/30/2020 7:54 PM) [facility]
[2020-05-30 20:01] LABS: BASO # 0.1 x10^3/uL (0.0-0.2); BASO % 1 % (0-3); EOS # 0.2 x10^3/uL (0.0-0.7); EOS % 2 % (0-3); HEMATOCRIT 38.9 % (36.0-47.0); HEMOGLOBIN 13.3 g/dL (12.0-15.5); LYMPH # 3.5 x10^3/uL (1.0-4.8); LYMPH % 36 % (24-48); MEAN CORPUSCULAR HEMOGLOBIN 33 pg (25-35); MEAN CORPUSCULAR HGB CONC 34 g/dL (31-37); MEAN CORPUSCULAR VOLUME 96 fL (79-100); MONO # 0.7 x10^3/uL (0.0-1.1); MONO % 7 % (0-9); NEUT # 5.2 x10^3/uL (1.8-7.7); NEUT % 54 % (31-73); PLATELET COUNT 199 x10^3/uL (140-400); RED BLOOD COUNT 4.07 x10^6/uL (3.50-5.40); RED CELL DISTRIBUTION WIDTH 13.5 % (11.5-14.5); WHITE BLOOD COUNT 9.7 x10^3/uL (4.0-11.0)
[2020-05-30 20:05] LABS: BACTERIA,URINE MODERATE /HPF (0-FEW); SQUAMOUS EPITHELIAL CELL,UR FEW /LPF
[2020-05-30 20:09] LABS: AMPHETAMINE/METHAMPHETAMINE NEG (NEG); BARBITURATES NEG (NEG); BENZODIAZEPINES NEG (NEG); CANNABINOIDS NEG (NEG); COCAINE NEG (NEG); METHADONE NEG (NEG); OPIATES POS (NEG); PHENCYCLIDINE NEG (NEG)
[2020-05-30 20:11] LABS: CALCIUM 8.4 mg/dL (8.5-10.1); CREATININE 0.8 mg/dL (0.6-1.0); POTASSIUM 3.4 mmol/L (3.5-5.1)
[2020-05-30 20:16] LABS: ALBUMIN 3.6 g/dL (3.4-5.0); TOTAL BILIRUBIN 0.3 mg/dL (0.2-1.0); TOTAL PROTEIN 7.1 g/dL (6.4-8.2)
[2020-05-30 21:01] VITALS: BP 135/73
== END 2020-05-30 20:55 ==
LOC: ER 17:38
DX: N20.0 Calculus of kidney (principal); R10.32 Left lower quadrant pain; F41.9 Anxiety disorder, unspecified; J44.9 Chronic obstructive pulmonary disease, unspecified; F32.9 Major depressive disorder, single episode, unspecified; E11.9 Type 2 diabetes mellitus without complications; G89.29 Other chronic pain; F17.200 Nicotine dependence, unspecified, uncomplicated; Z90.89 Acquired absence of other organs; Z98.51 Tubal ligation status; Z98.890 Other specified postprocedural states; Z88.8 Allergy status to other drugs, medicaments and biological substances
CPT/HCPCS: 36415; 74176; 80053; 80307; 81001; 81025; 83690; 83735; 85025; 87086; 96361; 96374; 96375; 99284; G0480; J2405; J3010; J7030

== ENCOUNTER 2021-08-17 09:38 | Emergency (ER) | payer SELFPAY ==
[~2021-08-17] VITALS: Ht 160 cm; Wt 80.3 kg
[~2021-08-17 09:38] MED LIST changes: +CYCL10TA19 PO; -CYCL10TA2 PO
[2021-08-17 10:27] VITALS: BP 125/81
[2021-08-17 11:36] LABS: BASO # 0.1 x10^3/uL (0.0-0.2); BASO % 1 % (0-3); EOS # 0.2 x10^3/uL (0.0-0.7); EOS % 2 % (0-3); HEMATOCRIT 40.1 % (36.0-47.0); HEMOGLOBIN 13.7 g/dL (12.0-15.5); LYMPH # 2.8 x10^3/uL (1.0-4.8); LYMPH % 31 % (24-48); MEAN CORPUSCULAR HEMOGLOBIN 33 pg (25-35); MEAN CORPUSCULAR HGB CONC 34 g/dL (31-37); MEAN CORPUSCULAR VOLUME 95 fL (79-100); MONO # 0.5 x10^3/uL (0.0-1.1); MONO % 6 % (0-9); NEUT # 5.6 x10^3/uL (1.8-7.7); NEUT % 61 % (31-73); PLATELET COUNT 224 x10^3/uL (140-400); RED BLOOD COUNT 4.22 x10^6/uL (3.50-5.40); RED CELL DISTRIBUTION WIDTH 13.8 % (11.5-14.5); WHITE BLOOD COUNT 9.3 x10^3/uL (4.0-11.0)
[2021-08-17] MEDS ORDERED: IOHEXOL 300 MG/ML 100ML VIAL. IV ONE (11:45)
[2021-08-17] MEDS ORDERED: CONTRAST GIVEN. MC PRN (11:45)
[2021-08-17 11:48] LABS: CALCIUM 8.3 mg/dL (8.5-10.1); CREATININE 0.5 mg/dL (0.6-1.0); GFR 135.3; POTASSIUM 3.6 mmol/L (3.5-5.1); PROTHROMBIN TIME PATIENT 12.4 SEC (11.7-14.0)
[2021-08-17 11:53] LABS: ALBUMIN 3.2 g/dL (3.4-5.0); ALBUMIN/GLOBULIN RATIO 0.9 (1.0-1.7); TOTAL BILIRUBIN 0.2 mg/dL (0.2-1.0); TOTAL PROTEIN 6.6 g/dL (6.4-8.2)
[2021-08-17 11:55] LABS: PREG TEST PT QUAL NEGATIVE (NEG)
[2021-08-17 12:00] LABS: FECAL OB PT NEGATIVE (NEG)
--- NOTE | 2021-08-17 12:18 | RAD ---
EXAM: Abdomen and pelvis CT with intravenous contrast. HISTORY: Bloody stools. TECHNIQUE: Computed tomographic images of the abdomen and pelvis were obtained following the administ ration of intravenous contrast. Multiplanar reformatting was performed. *One or more of the following individualized dose reduction techniques were utilized for this examina tion: 1. Automated exposure control. 2. Adjustment of the mA and/or kV according to patient size. 3. Use of iterative reconstruction technique. COMPARISON: 05/30/2020 and 02/20/2019. FINDINGS: Evaluation of the lower thorax demonstrates a 2 mm benign nodule at the left lung base. The re is no suspicious nodule. There is no infiltrate or pleural effusion. No hepatic lesion is seen. Th e gallbladder, pancreas, spleen, stomach, adrenal glands and right kidney are unremarkable. There is a 5 mm nonobstructing stone within the inferior left kidney. There is also a suspected 1 mm stone wit hin the mid zone of the left kidney. There is no appendicitis. There is no bowel obstruction. There is moderate proximal colonic stool. Th e urinary bladder is unremarkable. There are multiple ovarian follicles. There is a 2.7 cm suspected cyst or loculated fluid posterior to the uterine fundus, stable compared to prior studies. The aorta is normal in caliber. There is no lymphadenopathy. There is no suspicious osseous lesion. There is de generative change at the lumbosacral junction, with associated bilateral foraminal stenosis. IMPRESSION: 1. Left nephrolithiasis. 2. Stable 2.7 cm suspected cyst or fluid collection to the right uterine fundus. The two-year course of stability favors a benign etiology such as a right paraovarian cyst. Electronically signed by: Awa Harper MD (08/17/2021 12:16 PM) [id number]
--- NOTE | 2021-08-17 12:42 | PHYS DOC ---
Past Medical History Past Medical History: Anxiety, COPD, Depression, Diabetes-Type II, Kidney Stone, Other Additional Past Medical Histor: Chronic back pain,DDD,MULT ABSCESSES Past Surgical History: Tonsillectomy, Tubal ligation, Other Additional Past Surgical Histo: ACL repair right knee x2, Top teeth removed Smoking Status: Current Every Day Smoker Additional Information: 1 PACK A DAY FOR 30 YEARS Alcohol Use: Occasionally Drug Use: None General Adult EDM: Chief Complaint: RECTAL BLEED HPI: HPI: 41 yo F PMH Anxiety, COPD, Depression, Diabetes-Type II, and Kidney Stones presents to the ed with complaints of bright red rectal bleeding after bowel movement yesterday afternoon. Patient is on any anticoagulants. No history of blood transfusions. No prior history of rectal bleeding, known history of hemorrhoids or GI bleeding. Review of Systems: Review of Systems: Constitutional: Denies fever or chills. [] Eyes: Denies change in visual acuity. [] HENT: Denies nasal congestion or sore throat. [] Respiratory: Denies cough or shortness of breath. [] Cardiovascular: Denies chest pain or edema. [] GI: Denies abdominal pain, nausea, vomiting, constipation : Denies vaginal bleeding or hematuria Musculoskeletal: Denies back pain or joint pain. [] Integument: Denies rash or diaphoresis Neurologic: Denies headache, focal weakness or sensory changes. [] Endocrine: Denies polyuria or polydipsia. [] Lymphatic: Denies swollen glands. [] Psychiatric: Denies depression or anxiety. [] Heart Score: C/O Chest Pain: No Risk Factors: Risk Factors: DM, Current or recent (<one month) smoker, HTN, HLP, family history of CAD, obesity. Risk Scores: Score 0 - 3: 2.5% MACE over next 6 weeks - Discharge Home Score 4 - 6: 20.3% MACE over next 6 weeks - Admit for Clinical Observation Score 7 - 10: 72.7% MACE over next 6 weeks - Early Invasive Strategies Current Medications: Current Medications Medications (Trade) Dose Ordered Sig/Rainer Start Time Stop Time Status Last Admin Dose Admin Info (CONTRAST GIVEN -- Rx MONITORING) 1 each PRN DAILY PRN 08/17/21 11:45 08/19/21 11:44 Iohexol (Omnipaque 300 Mg/ml) 75 ml 1X ONCE 08/17/21 11:45 08/17/21 11:46 DC 08/17/21 12:02 75 ML Allergies: Allergies: Allergies Coded Allergies Type Severity Reaction Last Updated Verified tramadol Adverse Reaction Intermediate Anxiety 08/17/21 Yes Physical Exam: PE: Constitutional: Well developed, well nourished, no acute distress, non-toxic appearance. HENT: Normocephalic, atraumatic, Eyes: EOMI, conjunctiva normal, no discharge. Neck: Normal range of motion, supple, Cardiovascular: S1/2 present, regular rhythm Lungs & Thorax: Speaking in full sentences, bilateral equal chest rise, no tachypnea or increased work of breathing Skin: Warm, dry, no erythema, no rash. [] Extremities: No tenderness, no cyanosis, Neurologic: Alert and oriented X 3, normal motor function, normal sensory function, no focal deficits noted. [] Psychologic: Affect normal, judgement normal, mood normal. [] Rectal exam: Chaperoned by RN, external rectum with dried bright red blood, no brisk bleeding, no stool and rectum although could palpate internal hemorrhoids -small amount of bright red blood on finger after LAKSHMI Current Patient Data: Labs: Laboratory Tests Test 08/17/21 11:20 White Blood Count 9.3 x10^3/uL (4.0-11.0) Red Blood Count 4.22 x10^6/uL (3.50-5.40) Hemoglobin 13.7 g/dL (12.0-15.5) Hematocrit 40.1 % (36.0-47.0) Mean Corpuscular Volume 95 fL (79-100) Mean Corpuscular Hemoglobin 33 pg (25-35) Mean Corpuscular Hemoglobin Concent 34 g/dL (31-37) Red Cell Distribution Width 13.8 % (11.5-14.5) Platelet Count 224 x10^3/uL (140-400) Neutrophils (%) (Auto) 61 % (31-73) Lymphocytes (%) (Auto) 31 % (24-48) Monocytes (%) (Auto) 6 % (0-9) Eosinophils (%) (Auto) 2 % (0-3) Basophils (%) (Auto) 1 % (0-3) Neutrophils # (Auto) 5.6 x10^3/uL (1.8-7.7) Lymphocytes # (Auto) 2.8 x10^3/uL (1.0-4.8) Monocytes # (Auto) 0.5 x10^3/uL (0.0-1.1) Eosinophils # (Auto) 0.2 x10^3/uL (0.0-0.7) Basophils # (Auto) 0.1 x10^3/uL (0.0-0.2) Prothrombin Time 12.4 SEC (11.7-14.0) Prothrombin Time INR 0.9 (0.8-1.1) Activated Partial Thromboplast Time 26 SEC (24-38) Stool Occult Blood Negative (NEG) Sodium Level 137 mmol/L (136-145) Potassium Level 3.6 mmol/L (3.5-5.1) Chloride Level 102 mmol/L (98-107) Carbon Dioxide Level 25 mmol/L (21-32) Anion Gap 10 (6-14) Blood Urea Nitrogen 6 mg/dL (7-20) L Creatinine 0.5 mg/dL (0.6-1.0) L Estimated GFR (Cockcroft-Gault) 135.3 BUN/Creatinine Ratio 12 (6-20) Glucose Level 102 mg/dL (70-99) H Calcium Level 8.3 mg/dL (8.5-10.1) L Total Bilirubin 0.2 mg/dL (0.2-1.0) Aspartate Amino Transferase (AST) 17 U/L (15-37) Alanine Aminotransferase (ALT) 22 U/L (14-59) Alkaline Phosphatase 60 U/L (46-116) Total Protein 6.6 g/dL (6.4-8.2) Albumin 3.2 g/dL (3.4-5.0) L Albumin/Globulin Ratio 0.9 (1.0-1.7) L Serum Test, Qualitative Negative (NEG) Laboratory Tests 08/17/21 11:20 Laboratory Tests 08/17/21 11:20 Vital Signs: Vital Signs Date Time Temp Pulse Resp B/P (MAP) Pulse Ox O2 Delivery O2 Flow Rate FiO2 08/17/21 10:27 98.0 98 10 125/81 (96) 95 Room Air 98.0 EKG: EKG: [] Radiology/Procedures: Radiology/Procedures: IMAGING REPORT Signed PATIENT: MARIAN HOSKINS ACCOUNT: [id number] : 1980 LOCATION: ER AGE: 41 SEX: F EXAM STATUS: REG ER ORD. PHYSICIAN: CHANO GUTIERRES DO REASON: bloody stool PROCEDURE: CT ABD PELV W/ IV CONTRST ONLY EXAM: Abdomen and pelvis CT with intravenous contrast. HISTORY: Bloody stools. TECHNIQUE: Computed tomographic images of the abdomen and pelvis were obtained following the administration of intravenous contrast. Multiplanar reformatting was performed. *One or more of the following individualized dose reduction techniques were utilized for this examination: 1. Automated exposure control. 2. Adjustment of the mA and/or kV according to patient size. 3. Use of iterative reconstruction technique. COMPARISON: 05/30/2020 and 02/20/2019. FINDINGS: Evaluation of the lower thorax demonstrates a 2 mm benign nodule at the left lung base. There is no suspicious nodule. There is no infiltrate or pleural effusion. No hepatic lesion is seen. The gallbladder, pancreas, spleen, stomach, adrenal glands and right kidney are unremarkable. There is a 5 mm nonobstructing stone within the inferior left kidney. There is also a suspected 1 mm stone within the mid zone of the left kidney. There is no appendicitis. There is no bowel obstruction. There is moderate proximal colonic stool. The urinary bladder is unremarkable. There are multiple ovarian follicles. There is a 2.7 cm suspected cyst or loculated fluid posterior to the uterine fundus, stable compared to prior studies. The aorta is normal in caliber. There is no lymphadenopathy. There is no suspicious osseous lesion. There is degenerative change at the lumbosacral junction, with associated bilateral foraminal stenosis. IMPRESSION: 1. Left nephrolithiasis. 2. Stable 2.7 cm suspected cyst or fluid collection to the right uterine fundus. The two-year course of stability favors a benign etiology such as a right paraovarian cyst. Electronically signed by: Awa Harper MD (08/17/2021 12:16 PM) [id number] DICTATED and SIGNED BY: AWA HARPER MD DATE: 08/17/21 [id number] 0 Course & Med Decision Making: Course & Med Decision Making Pertinent Labs and Imaging studies reviewed. (See chart for details) Concern for hematochezia secondary to internal hemorrhoids. Patient hemodynamically stable with no tachycardia, exertional dyspnea or anemia on labs. CT concerning for possible stable, right paraovarian cyst. Will discharge home with strict ED return precautions were given for exertional dyspnea, syncope or shortness of breath. Encouraged urgent outpatient follow-up with PMD for routine care. Life-threatening processes were considered but are low suspicion at this time, given history, physical exam and ED workup. Pt was educated on all prescription medications and adverse effects. All patient's questions were answered and pt was stable at time of discharge. Life/limb-threatening differential includes but is not limited to, thrombocytopenia, drug related adverse event, gastrointestinal bleeding, posterior epistaxis, hemorrhagic shock, DIC, life-threatening rash, arterial in jury or trauma. I have spoken with the patient and/or caregivers. I explained the patient's condition, diagnoses and treatment plan based on the information available to me at this time. I have answered the patient and/or caregiver's questions and addressed any concerns. The patient and/or caregivers have a good understanding of patient's diagnosis, condition and treatment plan as can be expected at this point. Vital signs have been stable. Patient's condition is stable and appropriate for discharge from the emergency department. Patient will pursue further outpatient evaluation with primary care physician or other designated or consulting physician as outlined in the discharge instr uctions. The patient and/or caregivers are agreeable to this plan of care and follow-up instructions have been explained in detail. The patient and/or caregivers have received these instructions in written form and have expressed an understanding of the discharge instructions. The patient and/or caregivers are aware that any significant change of condition or worsening of symptoms should prompt immediate return to this or the closest emergency department or call to 911. Kirk Disclaimer: Kirk Disclaimer: This electronic medical record was generated, in whole or in part, using a voice recognition dictation system. Departure Departure Impression: Primary Impression: Hematochezia Additional Impression: Internal hemorrhoids without complication Disposition: 01 HOME / SELF CARE / HOMELESS Condition: STABLE Referrals: NO PCP (PCP) Follow-up with your primary care physician in 24 to 48 hours OR FOLLOW UP WITH FAMILY MEDICINE: [address], [address] [place] [address] Patient Instructions: Hemorrhoids, Rectal Bleeding Additional Instructions: FOLLOW UP WITH GASTROENTEROLOGY: FOR DEFINITIVE MANAGEMENT of rectal bleeding and hemorrhoids [facility] [address] [place] [address] EMERGENCY DEPARTMENT GENERAL DISCHARGE INSTRUCTIONS Thank you for coming to [facility] Emergency Department (ED) today and trusting us with you care. We trust that you had a positive experience in our Emergency Department. If you wish to speak to the department management, you may call the Director at [phone]. YOUR FOLLOW UP INSTRUCTIONS ARE FOLLOWS: 1. Do you have a private Doctor? If you do not have a private doctor, please ask for a resource list of physicians or clinics that may be able to assist you with follow up care. 2. The Emergency Physicain has interpreted your x-rays. The X-Ray specialist will also review them. If there is a change in the findings, you will be notified in 48 hours when at all possible. 3. A lab test or culture has been done, your results will be reviewed and you will be notified if you need a change in treatment. ADDITIONAL INSTRUCTIONS AND INFORMATION: 1. Your care today has been supervised by a physician who is specially trained in emergency care. Many problems require more than one evaluation for a complete diagnosis and treatment. We recommend that you schedule your follow up appointment as recommended to ensure complete treatment of you illness or injury. If you are unable to obtain follow up care and continue to have a problem, or if your condition worsens, we recommend that you return to the ED. 2. We are not able to safely determine your condition over the phone nor are we able to give sound medical advice over the phone. For these safety reasons, if you call for medical advice we will ask you to come to the ED for further evaluation. 3. If you have any questions regarding these discharge instructions please call the ED at [phone]. SAFETY INFORMATION: In the interest of safety, wellness, and injury prevention; we encourage you to wear your sealbelt, if you smoke; quite smoking, and we encourage family to use a protective helmet for bicycling and other sporting events that present an increased risk for head injury. IF YOUR SYMPTOMS WORSEN OR NEW SYMPTOMS DEVELOP, OR YOU HAVE CONCERNS ABOUT YOUR CONDITION; OR IF YOUR CONDITION WORSENS WHILE YOU ARE WAITING FOR YOUR FOLLOW UP APPOINTMENT; EITHER CONTACT YOUR PRIMARY CARE DOCTOR, THE PHYSICIAN WHOSE NAME AND NUMBER YOU WERE GIVEN, OR RETURN TO THE ED IMMEDIATELY. Scripts Docusate Sodium (COLACE) 100 Mg Capsule 1 CAP PO BID for 5 Days, #10 CAP 0 Refills Prov: CHANO GUTIERRES DO 08/17/21 CHANO GUTIERRES DO Aug 17, 2021 12:42
[2021-08-17] MEDS ORDERED: DOCU-109 PO (12:51)
== END 2021-08-17 12:54 | disposition home or self-care (01) ==
LOC: ER 09:38
DX: K64.8 Other hemorrhoids (principal); K92.1 Melena; J44.9 Chronic obstructive pulmonary disease, unspecified; E11.9 Type 2 diabetes mellitus without complications; G89.29 Other chronic pain; F17.200 Nicotine dependence, unspecified, uncomplicated; Z98.51 Tubal ligation status; Z88.6 Allergy status to analgesic agent
CPT/HCPCS: 36415; 74177; 80053; 82274; 84703; 85025; 85610; 85730; 99285; Q9967